=== PATIENT | male | born 1960 | race African-American/Black ===

== ENCOUNTER 2017-11-30 19:28 | Emergency (ER) | payer MEDICARE, MEDICAID ==
[~2017-11-30] VITALS: Ht 172.7 cm; Wt 82.0 kg
[2017-12-01] MEDS ORDERED: FLUORESCEIN SODIUM 1MG/STRIP OP ONE (04:00)
[2017-12-01] MEDS ORDERED: TETRACAINE 0.5% OPHTH DROPS 4ML OP ONE (04:00)
[2017-12-01 06:00] VITALS: BP 134/82
== END 2017-12-01 06:50 | disposition home or self-care (01) ==
LOC: ER 21:42
DX: T15.02XA Foreign body in cornea, left eye, initial encounter (principal); E78.00 Pure hypercholesterolemia, unspecified; X58.XXXA Exposure to other specified factors, initial encounter; Y93.H3 Activity, building and construction; Y92.89 Other specified places as the place of occurrence of the external cause; Y99.8 Other external cause status
CPT/HCPCS: 65220; 99284; J7120